=== PATIENT | female | born 1930 | race Caucasian/White ===

== ENCOUNTER 2016-05-21 13:15 | Emergency (ER) | payer MEDICARE, OTHER ==
[~2016-05-21] VITALS: Ht 167.6 cm; Wt 50.8 kg
[~2016-05-21 13:15] MED LIST: AGG25C PO; AMO250C PO; CHOL500024 PO; FLUT250M2 INH; HYDR25TA4 PO; LEVO75TA6 PO; POTA10TA34 PO; SIMV10TA84 PO; TOPI25TA84 PO
[2016-05-21 13:45] VITALS: BP 113/53
== END 2016-05-21 15:37 | disposition left against medical advice (07) ==
LOC: ER 13:16
DX: K59.00 Constipation, unspecified (principal); Z53.21 Procedure and treatment not carried out due to patient leaving prior to being seen by health care provider